=== PATIENT | male | born 1975 | race African-American/Black ===

== ENCOUNTER → 2019-01-08 14:30 | Emergency (ER) | payer MEDICAID ==
[~2019-01-08 14:30] MED LIST: Meclizine TAB* 12.5 MG PO ONE; NS 0.9% 1000 ML** 1,000 ML IV ONE
--- NOTE | 2019-01-08 14:51 | ED ---
Dizziness - HPI Summary HPI Summary: This patient is a 43 year old M brought in by ambulance to ED with a chief complaint of dizziness and cough since [employer] [employer]. The patient was eating and having a beer at a gas station. He had an episode of dizziness following a severe coughing fit. He reports a feeling coming over his body. He stopped eating then went to use the bathroom. He came back to his car and pumped the gas, then sat down to rest but he still felt dizzy like the room was spinning. He drove to the parking lot of a produce store and called 911 himself. The patient rates the pain 0/10 in severity. Symptoms aggravated by nothing. Symptoms alleviated by nothing. Patient denies ROMO, blurred vision, CP, SOB, palpitations, and N/V. PMHx of seasonal allergies. Denies hx of asthma. He is a former smoker. - History Of Current Complaint Chief Complaint: EDDizziness Stated Complaint: DIZZINESS PER EMS Time Seen by Provider: 01/08/19 14:33 Hx Obtained From: Patient Onset/Duration: Still Present Timing: Hours Severity Currently: None Character: Room Spinning Aggravating Factor(s): Nothing Alleviating Factor(s): Nothing Associated Signs And Symptoms: Positive: Other: - dizziness and cough; denies ROMO , blurred vision. Negative: Nausea, Vomiting, Chest Pain, SOB, Palpitations - Allergies/Home Medications Allergies/Adverse Reactions: Allergies Allergy/AdvReac Type Severity Reaction Status Date / Time Penicillins Allergy Hives Verified 01/08/19 14:47 Home Medications: Home Medications Albuterol HFA INHALER* [Ventolin HFA Inhaler*] 2 puff INH Q4H PRN 01/08/19 [ History Confirmed 01/08/19] Benzonatate CAP* [Tessalon 100 MG CAP*] 100 mg PO TID PRN 01/08/19 [History Confirmed 01/08/19] Fluticasone-Salmeterol 250-50* [Advair Diskus 250-50*] 1 puff INH BID 01/08/19 [ History Confirmed 01/08/19] Montelukast Sodium TAB* [Singulair 10 MG TAB*] 10 mg PO DAILY 01/08/19 [History Confirmed 01/08/19] Omeprazole (Nf) [Prilosec (NF)] 40 mg PO DAILY 01/08/19 [History Confirmed 01/08] PMH/Surg Hx/FS Hx/Imm Hx Endocrine/Hematology History: Denies: Hx Diabetes Cardiovascular History: Denies: Hx Coronary Artery Disease, Hx Hypertension Respiratory History: Reports: Hx Seasonal Allergies Denies: Hx Asthma Infectious Disease History: No Infectious Disease History: Denies: Traveled Outside the [place] in Last 30 Days - Family History Known Family History: Positive: Cardiac Disease, Hypertension, Other Family History: stroke - Social History Alcohol Use: Occasionally Substance Use Type: Reports: None Smoking Status (MU): Former Smoker Review of Systems Negative: Blurred Vision Negative: Palpitations, Chest Pain Positive: Cough. Negative: Shortness Of Breath Negative: Vomiting, Nausea Neurological: Other - dizziness Negative: Headache All Other Systems Reviewed And Are Negative: Yes Physical Exam - Summary Physical Exam Summary: VITAL SIGNS: Reviewed. GENERAL: Patient is a well-developed and nourished MALE who is lying comfortable in the stretcher. Patient is not in any acute respiratory distress. HEAD AND FACE: No signs of trauma. No ecchymosis, hematomas or skull depressions. No sinus tenderness. EYES: PERRLA, EOMI x 2, No injected conjunctiva, no nystagmus. EARS: Hearing grossly intact. Ear canals and tympanic membranes are within normal limits. MOUTH: Oropharynx within normal limits. NECK: Supple, trachea is midline, no adenopathy, no JVD, no carotid bruit, no c- spine tenderness, neck with full ROM. CHEST: Symmetric, no tenderness at palpation LUNGS: Clear to auscultation bilaterally. No wheezing or crackles. CVS: Regular rate and rhythm, S1 and S2 present, no murmurs or gallops appreciated. ABDOMEN: Soft, non-tender. No signs of distention. No rebound no guarding, and no masses palpated. Bowel sounds are normal. EXTREMITIES: FROM in all major joints, no edema, no cyanosis or clubbing. NEURO: Alert and oriented x 3. No acute neurological deficits. Speech is normal and follows commands. SKIN: Dry and warm GCS: 15 Triage Information Reviewed: Yes Vital Signs On Initial Exam: Initial Vitals Temp Pulse Resp BP Pulse Ox 98.3 F 108 13 117/77 97 01/08/19 14:35 01/08/19 14:35 01/08/19 14:35 01/08/19 14:35 01/08/19 14:35 Vital Signs Reviewed: Yes Diagnostics - Vital Signs Vital Signs Temp Pulse Resp BP Pulse Ox 01/08/19 14:35 98.3 F 106 12 117/77 95 - Laboratory Result Diagrams: 01/08/19 15:23 01/08/19 15:23 Lab Statement: Any lab studies that have been ordered have been reviewed, and results considered in the medical decision making process. - Radiology CXR Radiology Interpretation Completed By: Radiologist Summary of Radiographic Findings: NO EVIDENCE FOR ACTIVE CARDIOPULMONARY DISEASE. Dr. Triana has reviewed this radiology report. - CT Brain CT CT Interpretation Completed By: Radiologist Summary of CT Findings: 1. NO ACUTE INTRACRANIAL PATHOLOGY. 2. EXTENSIVE SINUS MUCOSAL INFLAMMATORY DISEASE, WITH AIR-FLUID LEVELS IN THE FRONTAL AND SPHENOID SINUSES. IN THE CORRECT CLINICAL SETTING, THIS MAY REPRESENT ACUTE SINUSITIS. Dr. Triana has reviewed this radiology report. - EKG 1450 Cardiac Rate: Tachycardia - 100 BPM EKG Rhythm: Sinus Tachycardia Summary of EKG Findings: Sinus tachycardia at 100 BPM, no ST elevations, and normal axis. Dizzy Course/Dx - Course Assessment/Plan: This patient is a 43-year-old male who presents to the emergency department with a chief complaint of having dizziness. He reports that he had an episode of coughing and afterwards developed a dizziness. Test results without any significant abnormality except for creatinine 1.24, glucose is 114, CPK is 294 and alkaline phosphatase is 110. Chest x-ray impression: No evidence of active cardiopulmonary disease. Head CT impression: No active intracranial pathology. Extensive sinus mucosal inflammatory disease with air- fluid levels in the frontal and sphenoid sinuses. In the correct clinical setting they may represent acute sinusitis. In the ED course the patient was given IV fluids and the patient was given meclizine for the dizziness. After his medications the patients symptoms have significantly improved. Therefore the patient will be discharged home with follow-up with PCP. At this point I discussed all the findings and test results with the patient. He was instructed to return to the emergency room immediately if any of the symptoms return or worsens. They understand and agree. Neurological exam before discharge: Patient is alert and oriented x 3. No acute neurological deficits. Patient vital signs are stable. Patient is to follow up with CPP in the next 2 3 days. They understand and agree. Plan of care was discussed with the patient and patient understands and agrees with the plan of care. All questions were answered at patient satisfaction. There were no further complaints or concerns. - Diagnoses Differential Diagnosis/HQI/PQRI: Benign Paroxysmal Positional Vertigo, CVA, Dysrhythmia, Labyrinthitis, Meniere's Disease, Transient Ischemic Attack, Vasovagal Reaction Provider Diagnoses: Dizziness Discharge - Sign-Out/Discharge Documenting (check all that apply): Patient Departure - discharge Patient Received Moderate/Deep Sedation with Procedure: No - Discharge Plan Condition: Stable Disposition: HOME Prescriptions: Meclizine TAB* [Antivert 12.5 TAB*] 25 mg PO TID PRN #20 tab PRN Reason: Dizziness Meclizine TAB* [Antivert 12.5 TAB*] 25 mg PO TID PRN #20 tab PRN Reason: Dizziness Patient Education Materials: Dizziness (ED) Referrals: [facility] [Outside] - 3 Days Additional Instructions: RETURN TO THE ED FOR ANY WORSENING OR NEW SYMPTOMS. - Billing Disposition and Condition Condition: STABLE Disposition: Home - Attestation Statements Document Initiated by Herb: Yes Documenting Scribe: Chetan Montejo Provider For Whom Herb is Documenting (Include Credential): Krzysztof Triana MD Scribe Attestation: Chetan Garrett scribed for Krzysztof Triana MD on 01/08/19 at 1854. Scribe Documentation Reviewed: Yes Provider Attestation: The documentation as recorded by the Chetan mcconnell accurately reflects the service I personally performed and the decisions made by la, Krzysztof Triana MD Status of Scribe Document: Viewed
[2019-01-08 15:40] LABS: Hematocrit 43 % (42-52); Hemoglobin 14.8 g/dL (14.0-18.0); Mean Corpuscular HGB Conc 34 g/dL (31-36); Mean Corpuscular Hemoglobin 31 pg (27-31); Mean Corpuscular Volume 90 fL (80-94); Mean Platelet Volume 9.7 fL (7.4-10.4); Platelet Count 174 10^3/uL (150-450); Red Blood Count 4.81 10^6 /uL (4.18-5.48); Red Cell Distribution Width 14 % (10.5-15); White Blood Count 6.6 10^3/uL (3.5-10.8)
[2019-01-08 15:50] LABS: INR 1.03 (0.82-1.09)
[2019-01-08 15:59] LABS: ALT 27 U/L (7-52); AST 24 U/L (13-39); Albumin 4.1 g/dL (3.2-5.2); Albumin/Globulin Ratio 1.3 (1-3); Alkaline Phosphatase 110 U/L (34-104); Anion Gap 6 mmol/L (2-11); BUN/Creatinine Ratio 12.1 (8-20); Blood Urea Nitrogen 15 mg/dL (6-24); CO2 Carbon Dioxide 23 mmol/L (22-32); Calcium 9.3 mg/dL (8.6-10.3); Chloride 108 mmol/L (101-111); Creatine Kinase 294 U/L (10-223); EGFR African American 76.3 (>60); Globulin 3.2 g/dL (2-4); Glucose 114 mg/dL (70-100); Magnesium 2.1 mg/dL (1.9-2.7); Potassium 3.9 mmol/L (3.5-5.0); Sodium 137 mmol/L (135-145); Total Protein 7.3 g/dL (6.4-8.9)
[2019-01-08 16:03] LABS: ABS Eosinophils 0.5 10^3/ul (0-0.6); ABS Lymphocytes 0.7 10^3/ul (1.0-4.8); ABS Monocytes 0.5 10^3/ul (0-0.8); ABS Neutrophils 4.9 10^3/ul (1.5-7.7); Eosinophil % 7.8 %; Lymphocyte % 10.8 %; Nucleated Red Blood Cells % 0.1
[2019-01-08 16:22] LABS: Urine Appearance Clear; Urine Bacteria 1+ (Absent); Urine Bilirubin Negative (Negative); Urine Blood Negative (Negative); Urine Color Yellow; Urine Glucose Negative (Negative); Urine Ketones Negative (Negative); Urine Nitrite Negative (Negative); Urine Protein Negative (Negative); Urine Red Blood Cell Trace(0-2/hpf) (Absent); Urine Squamous Epithelial Cell Present (Absent); Urine Urobilinogen Negative (Negative); Urine White Blood Cell Trace(0-5/hpf) (Absent)
[2019-01-08 16:28] LABS: Alcohol < 10 mg/dL (<10)
[2019-01-08 16:47] LABS: Urine Benzodiazepine Screen None Detected (None Detect); Urine Opiates Screen None Detected (None Detect)
[2019-01-08 16:52] LABS: TSH (Thyroid Stimulating Horm) 0.77 mcIU/mL (0.34-5.60)
[2019-01-08 17:52] VITALS: BP 140/83
== END | disposition home or self-care (01) ==
LOC: ED 14:30
DX: R42 Dizziness and giddiness (principal); R00.0 Tachycardia, unspecified; Z87.891 Personal history of nicotine dependence; Z88.0 Allergy status to penicillin
CPT/HCPCS: 36415; 70450; 71046; 80053; 80307; 80320; 81003; 81015; 82550; 83605; 83735; 83880; 84443; 84484; 85025; 85610; 85730; 86140; 87086; 93005; 96360; 96361; 99284; A9270-GY; G0480